=== PATIENT | female | born 1995 | race Caucasian/White ===

== ENCOUNTER 2022-03-28 08:36 | Emergency (ER) | payer MEDICAID ==
[~2022-03-28] VITALS: Ht 170.2 cm; Wt 81.8 kg
[2022-03-28 08:43] VITALS: BP 129/87
[2022-03-28] MEDS ORDERED: QUET50TA PO (11:06)
== END 2022-03-28 11:36 | disposition home or self-care (01) ==
LOC: ER 08:37
DX: F15.10 Other stimulant abuse, uncomplicated (principal); Z76.0 Encounter for issue of repeat prescription; Z79.899 Other long term (current) drug therapy
CPT/HCPCS: 99281